=== PATIENT | female | born 1955 | race African-American/Black ===

== ENCOUNTER 2018-08-28 07:39 | Day surgery (SDC) | payer OTHER ==
[2018-08-28] VITALS (12 sets, daily range): BP systolic 115–136; BP diastolic 65–76
[~2018-08-28] VITALS: Ht 157.5 cm; Wt 68.0 kg
--- NOTE | 2018-08-28 07:37 | Pre-Procedure Note/Attestation ---
Pre-Procedure Note/Attestation Complete Prior to Procedure Planned Procedure: left Procedure Narrative: shoulder arthroscopy, sad, possible rc repair Indications for Procedure Pre-Operative Diagnosis: left shoulder internal derangement Attestation I attest that I discussed the nature of the procedure; its benefits; risks and complications; and alternatives (and the risks and benefits of such alternatives ), prior to the procedure, with the patient (or the patient's legal corporate representative). I attest that, if there was a reasonable possibility of needing a blood transfusion, the patient (or the patient's legal corporate representative) was given the [facility] standardized written summary, pursuant to the [place] Blood Safety Act ([place] Health and Safety Code # 1645, as amended). I attest that I re-evaluated the patient just prior to the surgery and that there has been no change in the patient's H&P, except as documented below: Edwardo Chatman MD Aug 28, 2018 07:37
--- NOTE | 2018-08-28 07:37 | Operative Note - PDOC ---
Operative Note Operative Note Pre-op Diagnosis: left shoulder internal derangement Procedure: see op report Post-op Diagnosis: same as pre-op plus Operative Findings: consistent w/pre-op dx studies Anesthesia: regional Specimen: none Complications: none Condition: stable Estimated Blood Loss: none Implant(s) used?: No Edwardo Chatman MD Aug 28, 2018 07:37
[~2018-08-28 07:39] MED LIST: ADVAIR 500-501 EACH INH; NEURONTIN600 MG ORAL; NORVASC5 MG ORAL; SIMVASTATIN40 MG ORAL; SINGULAIR10 MG ORAL; VENTOLIN HFA18 GM INH; ceFAZolin 1gm IVPB IVPB ONE; celeBREX 200mg Cap **SURGERY PATIENTS ONLY ORAL ONE; oxyCONTIN 20mg tab ORAL ONE
[2018-08-28] MEDS ORDERED: Midazolam 2mg/2ml Inj ONE (07:40)
[2018-08-28] MEDS ORDERED: fentaNYL 100 mcg/2 mL IV ONE (07:40)
[2018-08-28] MEDS ORDERED: D5 1/2NS 1,000 ML IV SCH (07:45)
[2018-08-28] MEDS ORDERED: HYDROcodone/Acetamin 5/325 tab ORAL PRN (07:45)
[2018-08-28] MEDS ORDERED: Tylenol #3 tab (300mg/30mg) ORAL PRN (07:45)
[2018-08-28] MEDS ORDERED: HYDROmorphone 1mg/ml Carpuject SUBQ PRN (07:45)
[2018-08-28] MEDS ORDERED: oxyCONTIN 20mg tab ORAL ONE (08:46)
[2018-08-28] MEDS ORDERED: celeBREX 200mg Cap **SURGERY PATIENTS ONLY ORAL ONE (08:46)
[2018-08-28] MEDS ORDERED: EPINEPHrine 1mg/1ml Amp ONE (09:04)
[2018-08-28] MEDS ORDERED: Morphine Sulfate PF 10 ML ONE ×2 (09:04→10:08)
[2018-08-28] MEDS ORDERED: Ketorolac 30mg Inj ONE ×3 (09:05→10:08)
[2018-08-28] MEDS ORDERED: Ropivacaine 2mg/ml Amp 20ml INJ ONE (09:05)
[2018-08-28] MEDS ORDERED: Bupivacaine w/Epi 0.25% 30ml Vial INJ ONE (09:05)
[2018-08-28] MEDS ORDERED: Kenalog-40 1ml Vial ONE (09:05)
[2018-08-28] MEDS ORDERED: LR 1000ml ONE (09:30)
[2018-08-28] MEDS ORDERED: Propofol 200mg/20ml IV ONE (09:30)
[2018-08-28] MEDS ORDERED: NS Irrig 4000ml IRRIG ONE ×2 (09:30→09:34)
[2018-08-28] MEDS ORDERED: Sodium Chloride 10ml vial INJ ONE (10:01)
[2018-08-28] MEDS ORDERED: ePHEDrine 50mg/ml Inj ONE (10:01)
[2018-08-28] MEDS ORDERED: Ketorolac 30mg Inj IV PRN (10:15)
[2018-08-28] MEDS ORDERED: LR 1000ml 1,000 ML IVLG SCH (10:15)
[2018-08-28] MEDS ORDERED: Midazolam 2mg/2ml Inj IVP PRN (10:15)
[2018-08-28] MEDS ORDERED: Hydromorphone 0.5mg/0.5ml inj IVP PRN (10:15)
[2018-08-28] MEDS ORDERED: DiphenhydrAMINE 50mg/ml Inj IVP PRN (10:15)
--- NOTE | 2018-08-28 10:15 | Anethesia Preoperative Eval ---
Anesthesia Pre-op PMH/ROS General Date of Evaluation: Aug 28, 2018 Time of Evaluation: 09:20 Anesthesiologist: Maximo ASA Score: ASA 2 Mallampati Score Class I : Soft palate, uvula, fauces, pillars visible Class II: Soft palate, uvula, fauces visible Class III: Soft palate, base of uvula visible Class IV: Only hard plate visible Mallampati Classification: Class II Surgeon: Compa Diagnosis: L shoulder pain Surgical Procedure: L shoulder scope Anesthesia History: none Family History: no anesthesia problems Allergies: Uncoded Allergies: steroids (Allergy, Severe, 08/27/18) SKIN PIGMENTATION TURNS WHITE Medications: see eMAR Patient NPO?: Yes Past Medical History Cardiovascular: Reports: HTN - mild; Denies: CAD, IA, valve dz, arrhythmia, other Pulmonary: Reports: asthma - stable on inhalers; Denies: COPD, NAHUN, other Gastrointestinal/Genitourinary: Reports: GERD; Denies: CRI, ESRD, other Neurologic/Psychiatric: Reports: other - chronic pain; Denies: dementia, CVA, depression/anxiety, TIA Endocrine: Denies: DM, hypothyroidism, steroids, other HEENT: Denies: cataract (L), cataract (R), glaucoma, [place] (L), [place] (R), other Hematology/Immune: Reports: anemia - mild; Denies: DVT, bleeding disorder, other Musculoskeletal/Integumentary: Denies: OA, RA, DJD, DDD, edema, other PMH Narrative: as above PSxH Narrative: Knee Sx Anesthesia Pre-op Phys. Exam Physician Exam Last Vital Signs Date Time Temp Pulse Resp B/P (MAP) Pulse Ox O2 Delivery O2 Flow Rate FiO2 08/28/18 08:25 97.4 72 20 136/72 100 Room Air Constitutional: NAD Neurologic: CN 2-12 intact Cardiovascular: RRR, no M/R/G Respiratory: CTA Gastrointestinal: S/NT/ND Airway Exam Mallampati Score: Class II MO: full Neck: flexible ROM: full Teeth: intact Dentures: no upper, no lower Anesthesia Pre-op A/P Labs see chart Studies Pre-op Studies: EKG - NSR Risk Assessment & Plan Assessment: ASA 2 Plan: GA with LMA L brachial plexus block for post op pain control Status Change Before Surgery: No Pre-Antibiotics Drug: Ancef 1gr Given Within 1 Hr of Incision: Yes Time Given: 09:50 Micheal Marsh MD Aug 28, 2018 10:15
--- NOTE | 2018-08-28 10:55 | Immediate Post-Op Evaluation ---
Immediate Post-Op Evalulation Immediate Post-Op Evalulation Procedure: L shoulder arthroscopy with subacromion decompression Date of Evaluation: Aug 28, 2018 Time of Evaluation: 10:54 IV Fluids: 700 Blood Products: none Estimated Blood Loss: min Urinary Output: none Blood Pressure Systolic: 125 Blood Pressure Diastolic: 74 Pulse Rate: 68 Respiratory Rate: 20 O2 Sat by Pulse Oximetry: 99 Temperature (Fahrenheit): 97.6 Pain Score (1-10): 1 Nausea: No Vomiting: No Complications none Patient Status: reacts, patent, none Hydration Status: adequate Micheal Marsh MD Aug 28, 2018 10:55
--- NOTE | 2018-08-28 12:52 | 48 Hour Post Anesthesia Eval ---
Post Anesthesia Evaluation Procedure: L shoulder arthroscopy with subacromion decompression Date of Evaluation: Aug 28, 2018 Time of Evaluation: 12:51 Blood Pressure Systolic: 116 0: 72 Pulse Rate: 64 Respiratory Rate: 20 Temperature (Fahrenheit): 97.6 O2 Sat by Pulse Oximetry: 98 Airway: patent Nausea: No Vomiting: No Pain Intensity: 1 Hydration Status: adequate Cardiopulmonary Status: stable Mental Status/LOC: patient returned to baseline Follow-up Care/Observations: n/a Post-Anesthesia Complications: none Follow-up care needed: ready to discharge Micheal Marsh MD Aug 28, 2018 12:52
--- NOTE | 2018-08-28 22:00 | Operative Note - Dictated ---
DATE OF OPERATION: 08/28/2018 POSTOPERATIVE DIAGNOSES: 1. Left shoulder anterior labral tear. 2. Left shoulder impingement syndrome. 3. Left shoulder partial articular-sided rotator cuff tear. PROCEDURES: 1. Left shoulder arthroscopy and extensive intraarticular debridement. 2. Left shoulder subacromial decompression bursectomy with release of CA ligament. SURGEON: Edwardo Chatman M.D. ANESTHESIA: Interscalene with general. INDICATION FOR PROCEDURE: The patient is a pleasant female, who has had progressive left shoulder pain. She failed conservative treatment and elected to undergo left shoulder arthroscopy with subacromial decompression bursectomy. Risks, limitations, expectations, and complications of procedure were discussed in detail. All questions addressed. DESCRIPTION OF PROCEDURE: After informed consent was obtained, the patient was brought to the operating room and placed under interscalene general anesthesia. Left shoulder was prepped and draped in a sterile manner. Time-out was performed. A posterolateral stab incision was then made. Trocar was introduced into the glenohumeral joint with no chondral damage. There was some fraying of the anterior labrum. The subscap appeared to be intact along. The biceps was intact along the superior labrum. There was a slight partial articular rotator cuff tear. Anterior working portal was established. The anterior labrum was debrided. Once it was debrided, the margin of the glenoid and labrum was intact. Repair was still required. The camera was then placed underneath the area of the partial rotator cuff tear and this was debrided to represent a partial articular-sided rotator cuff. Once this was done, the camera was repositioned in subacromial space. Complete bursectomy with the CA ligament was performed. Acromioplasty was started from lateral to medial and completed from posterior to anterior. Bursectomy was very hyperemic. Hypertrophic mucosa was then difficult to remove. Once that was done, the instruments were removed. Portal sites were closed with 3-0 Monocryl sutures. Steri-Strips and a sterile dressing were applied. Edwardo Chatman M.D. DR: STAR JOB#: [id number] CC:
--- NOTE | 2018-08-28 22:15 | Operative Note - Dictated ---
DATE OF OPERATION: 08/28/2018 PREOPERATIVE DIAGNOSES: 1. Right shoulder partial rotator cuff tear. 2. Right shoulder impingement syndrome, bursitis. POSTOPERATIVE DIAGNOSES: 1. Right shoulder partial articular-sided rotator cuff tear. 2. Right shoulder partial tear of long head of biceps tendon. 3. Right shoulder impingement syndrome, bursitis. PROCEDURES: 1. Right shoulder diagnostic arthroscopy with extensive debridement. 2. Right shoulder subacromial decompression bursectomy. SURGEON: Edwardo Chatman M.D. ANESTHESIA: Interscalene with general. INDICATION FOR PROCEDURE: The patient is a pleasant female who has had progressive right shoulder pain. The patient had continued pain in the right shoulder. Therefore, it was elected to undergo right shoulder subacromial decompression bursectomy. Risks, limitations, expectations, and complications of procedure were discussed in detail. All questions addressed. DESCRIPTION OF PROCEDURE: After informed consent was obtained, the was brought to the operating room. The patient was placed under general anesthesia. The right shoulder was prepped and draped in a sterile manner. Time-out was performed. Ancef was administered. A posterolateral stab incision was then made. Trocar was introduced into the glenohumeral joint. There is some fraying along the long head of the biceps tendon. There is a partial articular-sided rotator cuff tear. A shaver was then placed inside through the rotator interval and debridement of the biceps tendon as well as the rotator cuff was performed. A formal repair was not required. At this point, the camera was placed in the subacromial space. There was hypertrophic bursal tissue, which was then removed and identified in the anterolateral acromion after release of the CA ligament. Acromioplasty was started from lateral to medial and completed from posterior to anterior. The bursectomy was completed. The bursal side of the rotator cuff was intact. At this point, the instruments were removed. Portal sites were closed with 3-0 Monocryl sutures. Steri-Strips and a sterile dressing were applied. The patient was awoken and taken to recovery room with stable vital signs. ESTIMATED BLOOD LOSS: None. COMPLICATIONS: None. SPECIMENS: None. Edwardo Chatman M.D. DR: JAZMIN JOB#: [id number] CC:
== END 2018-08-28 12:40 | disposition home or self-care (01) ==
LOC: SUR 07:39
DX: M75.111 Incomplete rotator cuff tear or rupture of right shoulder, not specified as traumatic (principal); S46.111A Strain of muscle, fascia and tendon of long head of biceps, right arm, initial encounter; M75.41 Impingement syndrome of right shoulder; X58.XXXA Exposure to other specified factors, initial encounter; Y92.9 Unspecified place or not applicable; I10 Essential (primary) hypertension; E78.5 Hyperlipidemia, unspecified; K21.9 Gastro-esophageal reflux disease without esophagitis; M79.7 Fibromyalgia; D64.9 Anemia, unspecified; Z88.8 Allergy status to other drugs, medicaments and biological substances
CPT/HCPCS: 29823; J0171; J0690; J1885; J2250; J2274; J2704; J3010; 94003; 94150